=== PATIENT | female | born 1955 | race Caucasian/White ===

== ENCOUNTER 2019-12-31 15:50 | Emergency (ER) | payer BC, SELFPAY ==
--- NOTE | ~2019-12-31 | XR_ITS ---
EXAMINATION: [id number] EXAM DATE: 12/31/2019 16:14 INDICATION: Initial encounter following injury, with pain of the left ribs. TECHNIQUE: Frontal projection of the upper left ribs, frontal projection of the lower left ribs, obli que projection of the left ribs, frontal chest x-ray(s) for interpretation. There is no prior study for comparison. FINDINGS: There are no displaced acute left rib fractures identified. There is no soft tissue abnor mality seen. No confluent consolidation, pneumothorax or pleural effusion suspected. Cardiomediastina l silhouette is normal. IMPRESSION: No displaced left rib fractures. Reviewed, dictated and finalized at location A.
[2019-12-31 16:00] VITALS: BP 122/58; PULSE 78; RESP 16; TEMP 36.6; O2SAT 99
--- NOTE | 2019-12-31 16:36 | ED.GENADULT ---
HPI - General Adult General Chief complaint: Back Pain/Injury Stated complaint: left side injury Time Seen by Provider: 12/31/19 16:25 Source: patient and RN notes reviewed Mode of arrival: ambulatory Limitations: no limitations History of Present Illness HPI narrative: Patient presents today complaining of an injury to her left lateral ribs. Around 10 AM she had a large metal horse feed her fall and hit her on the left side at home. Currently pain free at rest, which increases some with movement and talking. Denies the pain increases when she takes a deep breath. Denies shortness of breath. She has tried no [id number] treatment prior to arrival. 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 EYES: Denies visual changes, redness, or discharge. ENT: Denies rhinorrhea, congestion, sore throat, or otalgia. CARDIOVASCULAR: Denies chest pain, palpitations, or edema. RESPIRATORY: Denies cough or dyspnea. Left rib injury GASTROINTESTINAL: Denies abdominal pain, nausea, vomiting, or diarrhea. GENITOURINARY: Denies dysuria or hematuria. SKIN: Denies rash, itching, or wounds. MUSCULOSKELETAL: Denies back pain, joint pain, or myalgia. NEUROLOGIC: Denies headache, numbness, tingling, or weakness. PSYCH: Denies depression or anxiety. [facility] Past Medical History Medical History (Updated 12/31/19 @ 16:48 by Victorina Worrell, GAME MANAGER, ) Leukopenia Comments At time of signature, I have reviewed and agree with nursing past medical, surgical, social and family history unless otherwise noted. Please see nursing chart for further information. There is no relevant family history pertinent to the presenting complaint Exam Narrative: Exam Narrative: GENERAL: Well-appearing, well-nourished, and in no acute distress. HEAD: Normocephalic, atraumatic. EYES: EOMI. No redness or drainage. Conjunctivae normal. ENT: Mucous membranes pink and moist. NECK: Normal AROM. CHEST: No respiratory distress. Clear to auscultation. Point tenderness to the left lateral ribs. No edema, ecchymosis, erythema, deformity, crepitus, or step-off noted. HEART: Regular rate and rhythm. No murmur appreciated. Normal peripheral pulses. ABDOMEN: Soft, nontender, nondistended, normal active bowel sounds. MUSCULOSKELETAL: No bony tenderness. EXTREMITIES: Normal range of motion. No edema. SKIN: Warm, dry, no rash. Capillary refill normal. Normal skin turgor. NEURO: No focal deficits. Alert and oriented x3. Gait steady. PSYCH: Normal affect. No signs of depression or anxiety. Course Vital Signs Vital signs: Vital Signs Temperature 97.9 F 12/31/19 16:00 Pulse Rate 78 12/31/19 16:00 Respiratory Rate 16 12/31/19 16:00 Blood Pressure 122/58 L 12/31/19 16:00 Pulse Oximetry 99 12/31/19 16:00 Temperature 97.9 F 12/31/19 16:00 Pulse Rate 78 12/31/19 16:00 Respiratory Rate 16 12/31/19 16:00 Blood Pressure 122/58 L 12/31/19 16:00 Pulse Oximetry 99 12/31/19 16:00 Reviewed. Pt has been instructed to follow up with her PCP regarding her elevated blood pressure today. Medical Decision Making Differential Diagnosis Differential Diagnosis: Rib fracture, rib contusion, abrasion Vital Signs Vital Signs: Vital Signs Temperature 97.9 F 12/31/19 16:00 Pulse Rate 78 12/31/19 16:00 Respiratory Rate 16 12/31/19 16:00 Blood Pressure 122/58 L 12/31/19 16:00
== END 2019-12-31 16:40 | disposition home or self-care (01) ==
PROVIDERS: Emergency Provider Nurse Practitioner
DX: S20.212A Contusion of left front wall of thorax, initial encounter (principal); W20.8XXA Other cause of strike by thrown, projected or falling object, initial encounter
CPT/HCPCS: 71101; 99213; G0463

== ENCOUNTER → 2021-02-06 02:35 | Outpatient (CLI) | payer BC, SELFPAY ==
[2021-02-06 16:36] LABS: SARS-CoV-2 RNA PCR Negative
== END ==
PROVIDERS: Visit Provider Internal Medicine Gastroenterology
DX: Z01.812 Encounter for preprocedural laboratory examination (principal); Z20.822 Contact with and (suspected) exposure to COVID-19
CPT/HCPCS: C9803; U0003; U0005

== ENCOUNTER 2021-02-09 00:33 | Day surgery (SDC) | payer BC, SELFPAY ==
[2021-01-28 10:45] VITALS: BMI 22.0
--- NOTE | 2021-02-06 14:29 | P.HP_ITS ---
History of Present Illness History of Present Illness Consent: Risks, benefits, and alternatives have been discussed and questions answered. Patient agrees to proceed with procedure. Chief complaint: hx of colon polyps Narrative: Aixa Bray is a 66 year old female who is here for colon cancer screening. She had a polyp with high-grade dysplasia removed several years ago Review of Systems Review of Systems: All systems reviewed & are unremarkable except as noted in HPI and below PMFSH Past Medical History Medical History (Updated 02/06/21 @ 14:30 by Yanick Hernandez MD) Leukopenia Social History Social History Smoking status: Never smoker Alcohol intake: current Alcohol use details: Yearly x2 Living arrangements: with family Spiritual care concerns: No Meds Home Medications and Allergies Home Medications Medication Instructions Recorded Confirmed Type ascorbic acid (vitamin C) 250 mg PO DAILY 01/28/21 01/28/21 History cholecalciferol (vitamin D3) 25 mcg PO DAILY 01/28/21 01/28/21 History [Vitamin D3] garlic [Garlique] 5 mg PO DAILY 01/28/21 01/28/21 History mv-mn-folic ac-vit K-herb 289 1 tablet PO DAILY 01/28/21 01/28/21 History [Alive Once Daily Women 50 Plus] Allergies Allergy/AdvReac Type Severity Reaction Status Date / Time nickel Allergy Severe RASH Verified 02/09/21 08:08 erythromycin base Allergy Mild HIVES Verified 02/09/21 08:08 midazolam AdvReac Severe NAUSEA Verified 02/09/21 08:08 /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
--- NOTE | 2021-02-09 07:38 | WPDANESEPPF ---
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 SULFITE DERIVATIVES Allergy Mild ITCHY EYES Uncoded 02/09/21 08:08 Home Medications Medication Instructions Recorded Confirmed Type ascorbic acid (vitamin C) 250 mg PO DAILY 01/28/21 01/28/21 History cholecalciferol (vitamin D3) 25 mcg PO DAILY 01/28/21 01/28/21 History [Vitamin D3] garlic [Garlique] 5 mg PO DAILY 01/28/21 01/28/21 History mv-mn-folic ac-vit K-herb 289 1 tablet PO DAILY 01/28/21 01/28/21 History [Alive Once Daily Women 50 Plus] Patient hx anesthesia problems: none Family hx anesthesia problems: none Results Review: All pre-operative results and documents have been reviewed as part of the pre-operative evaluation. [facility] Past Medical History Medical History (Updated 02/06/21 @ 14:30 by Yanick Hernandez MD) Leukopenia Social History Social History Smoking status: Never smoker Alcohol intake: current Alcohol use details: Yearly x2 Living arrangements: with family Spiritual care concerns: No Anes - Eval Final PreProcedure Day of Procedure 02/09/21 07:38 Patient weight: normal Heart: regular rate and rhythm Lungs: clear to auscultation and normal air movement Airway: Mallampati scale class II Neurological: alert and oriented Last oral intake: >/= 8 hours ASA classification: II Emergent: no Anesthetic plan: proceed Anesthesia type and monitoring: general GIVS Results Review: All pre-operative results and documents have been reviewed as part of the pre-operative evaluation. Informed Consent: The patient's anesthetic plan and its attendant risks and benefits were discussed with the patient/family/POA. Questions were solicited and answers provided to the satisfaction of the patient/family/POA.
[2021-02-09 08:08] VITALS: BP 105/71; PULSE 81; RESP 18; TEMP 36.8; O2SAT 100
[2021-02-09] MEDS: LACTATED RINGERS 1,000 ML 150 ML IV CONT (08:19)
[2021-02-09 08:53] VITALS: BP 95/53; PULSE 64; RESP 16; O2SAT 96
[2021-02-09 09:03] VITALS: BP 95/53; PULSE 64; RESP 15; O2SAT 96
[2021-02-09 09:13] VITALS: BP 123/55; PULSE 73; RESP 22; O2SAT 100
== END 2021-02-09 09:25 | disposition home or self-care (01) ==
PROVIDERS: PCP Internal Medicine; Visit Provider Internal Medicine Gastroenterology
PROC: 0DJD8ZZ Inspection of Lower Intestinal Tract, Via Natural or Artificial Opening Endoscopic (ICD-10-PCS; CPT 45378; principal; 2021-02-09 09:00)
DX: Z12.11 Encounter for screening for malignant neoplasm of colon (principal); Z86.010 Personal history of colon polyps
CPT/HCPCS: 45378; C9803; J2704; J7120; U0003; U0005

== ENCOUNTER 2022-12-30 14:26 | Emergency (ER) | payer MEDICARE, OTHER, SELFPAY ==
--- NOTE | ~2022-12-30 | CT_ITS ---
EXAMINATION: CT BRAIN W/O DATE: 12/30/2022 17:37 INDICATION: Head trauma. Evaluate for bleed. TECHNIQUE: Computed tomography (CT) of the head was performed without intravenous contrast. The dose- length product was 832.33 mGy-cm. Automated exposure control and iterative reconstruction technique w ere employed. COMPARISON: No prior studies for comparison. FINDINGS: Normal brain parenchymal volume for age. Normal wheeler-white differentiation. No acute intrac ranial hemorrhage, infarction, mass or mass effect. No ventriculomegaly or midline shift. Midline sagittal images demonstrate a normal corpus callosum, c raniovertebral junction and sella turcica. Basilar cisterns are patent. Paranasal sinuses and mastoids are pneumatized. No depressed skull fractures. IMPRESSION: 1. No acute intracranial abnormality. Reviewed, dictated and finalized at location A.
[2022-12-30 14:50] VITALS: BP 133/76; PULSE 110; RESP 16; TEMP 36.8; O2SAT 99
--- NOTE | 2022-12-30 16:53 | ED.GENADULT ---
HPI - General Adult General Chief complaint: Wound/Laceration Stated complaint: head lac Time Seen by Provider: 12/30/22 16:50 Source: patient Mode of arrival: ambulatory Limitations: no limitations History of Present Illness HPI narrative: This is a 67-year-old female who presents to the ED with chief complaint of head injury that occurred just prior to arrival. Patient states she was pulling something down in her shed and it hit her on the right side of the head. She reports a laceration to the right side of the head with bleeding. Denies any LOC, emesis. She does not take blood thinners. Denies numbness, weakness, speech change or voice change. Denies any problems with ambulation. Related Data Home Medications Medication Instructions Recorded Confirmed ascorbic acid (vitamin C) 500 mg 250 mg PO DAILY 01/28/21 01/28/21 tablet cholecalciferol (vitamin D3) 25 25 mcg PO DAILY 01/28/21 01/28/21 mcg (1,000 unit) tablet (Vitamin D3) garlic 5,000 mcg tablet 5 mg PO DAILY 01/28/21 01/28/21 multivit,mineral-folic acid 800 1 tablet PO DAILY 01/28/21 01/28/21 mcg-vit K 100 mcg-herbal no.289 tablet (Alive Once Daily Women 50 Plus) Allergies Allergy/AdvReac Type Severity Reaction Status Date / Time nickel Allergy Severe RASH Verified 12/30/22 17:20 erythromycin base Allergy Mild HIVES Verified 12/30/22 17:20 midazolam AdvReac Severe NAUSEA Verified 12/30/22 17:20 /VOMITING CUSTODIAL MEMORY PROBLEMS SULFITE DERIVATIVES Allergy Mild ITCHY EYES Uncoded 12/30/22 17:20 Review of Systems Review of Systems: All systems as dictated in [facility] Past Medical History Medical History (Updated 12/30/22 @ 18:20 by Ghassan Subramanian PA-C) Leukopenia Social History Social History Smoking status: Never smoker Alcohol intake: current Alcohol use details: Yearly x2 Living arrangements: with family Spiritual care concerns: No Exam Narrative: GENERAL: Well-appearing, well-nourished, and in no acute distress. HEAD: Normocephalic, atraumatic. EYES: PERRLA and EOMI. ENT: Nares clear, no rhinorrhea or epistaxis. Mucous membranes moist. Oropharynx without tonsillar hypertrophy exudate or other lesions. NECK: Supple. No adenopathy or masses. CHEST: No respiratory distress. Clear to auscultation. No wheezes rales or rhonchi HEART: Regular rate and rhythm. No murmur heard. Normal peripheral pulses. ABDOMEN: Soft, nontender, nondistended, normal active bowel sounds. MSK: Normal range of motion. No edema. SKIN: There is a 1 cm angled V-shaped laceration to the right parietal scalp. Bleeding is controlled. NEURO: Alert and oriented x4. No focal deficits. Ambulatory without difficulty. PSYCH: Normal mood and affect. Course Vital Signs Vital signs: Vital Signs Temperature 98.3 F 12/30/22 14:50 Pulse Rate 110 H 12/30/22 14:50 Respiratory Rate 16 12/30/22 14:50 Blood Pressure 133/76 12/30/22 14:50 Pulse Oximetry 99 12/30/22 14:50 Oxygen Delivery Room Air 12/30/22 14:50 Temperature 98.3 F 12/30/22 14:50 Pulse Rate 110 H 12/30/22 14:50 Respiratory Rate 16 12/30/22 14:50 Blood Pressure 133/76 12/30/22 14:50 Pulse Oximetry 99 12/30/22 14:50 Oxygen Delivery Room Air 12/30/22 14:50 Procedures Laceration Laceration 1: Date: 12/30/22 Time: 18:21 Site: scalp Side (If applicable): right Size (cm): 1 Description: other (Angled) Depth: simple, single layer Local Anesthetic: none Pre-repair: wound explored and irrigated extensively ====== Skin Level ====== Skin layer closed with: sandra Number of sutures: 1 ====== Subcutaneous Layer ====== ====== Muscle Layer ====== ====== Tendon Layer ====== Medical Decision Making MDM Narrative Medical decision making narrative: This is a 67-ye
[2022-12-30 18:19] VITALS: BP 132/69; PULSE 98; RESP 16; TEMP 37; O2SAT 98
== END 2022-12-30 18:39 | disposition home or self-care (01) ==
PROVIDERS: Emergency Provider Physician Assistant; PCP Family Medicine
DX: S01.01XA Laceration without foreign body of scalp, initial encounter (principal); W20.8XXA Other cause of strike by thrown, projected or falling object, initial encounter
CPT/HCPCS: 12001; 70450; 99284

== ENCOUNTER 2024-02-28 01:08 | Day surgery (SDC) | payer MEDICARE, OTHER, SELFPAY ==
[2024-02-21 15:57] VITALS: BMI 23.3
[2024-02-28 08:04] VITALS: BP 118/74; PULSE 94; RESP 16; TEMP 36.4; O2SAT 97; BMI 23.1
[2024-02-28] MEDS: LACTATED RINGERS 1,000 ML 150 ML IV CONT (08:19)
--- NOTE | 2024-02-28 08:25 | WPDANESEPPF ---
Anes - Initial Pre Proc Eval Procedure: Operation Date: 02/28/24 09:00 Proposed Procedures p Screening Colonoscopy - Nikita Yun MD Date/Time: 02/28/24 08:25 Surgeon: Nikita Yun MD Pre Op Diagnosis: screening neoplasm of colon Patient Data Age: 69 Gender: F Height: 1.63 m Weight: 61.3 kg Last Vital Signs Temp 36.4 C L 02/28/24 08:04 Pulse 94 02/28/24 08:04 Resp 16 02/28/24 08:04 BP 118/74 02/28/24 08:04 Pulse Ox 97 02/28/24 08:04 O2 Del Method Room Air 02/28/24 08:04 Allergies Allergy/AdvReac Type Severity Reaction Status Date / Time nickel Allergy Severe RASH Verified 02/28/24 08:02 erythromycin base Allergy Mild HIVES Verified 02/28/24 08:02 midazolam AdvReac Severe NAUSEA Verified 02/28/24 08:02 /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 SULFITE DERIVATIVES Allergy Mild ITCHY EYES Uncoded 02/28/24 08:02 Home Medications ?Medication ?Instructions ?Recorded ?Confirmed ?Type ascorbic acid (vitamin C) 500 mg 250 mg PO DAILY 01/28/21 02/28/24 History tablet cholecalciferol (vitamin D3) 25 25 mcg PO DAILY 01/28/21 02/28/24 History mcg (1,000 unit) tablet (Vitamin D3) garlic 5,000 mcg tablet 5 mg PO DAILY 01/28/21 02/28/24 History multivit,mineral-folic acid 800 1 tablet PO DAILY 01/28/21 02/28/24 History mcg-vit K 100 mcg-herbal no.289 tablet (Alive Once Daily Women 50 Plus) Patient hx anesthesia problems: none Family hx anesthesia problems: none Results Review: All pre-operative results and documents have been reviewed as part of the pre-operative evaluation. PMFSH Past Medical History Medical History Leukopenia Social History Social History Smoking status: Never smoker Alcohol intake: current Alcohol use details: Yearly x2 Substance use type: does not use Living arrangements: with family Spiritual care concerns: No Anes - Eval Final PreProcedure Day of Procedure 02/28/24 08:25 Patient weight: normal Heart: regular rate and rhythm Lungs: clear to auscultation Airway: Mallampati scale class II Neurological: alert and oriented Last oral intake: >/= 8 hours ASA classification: II Emergent: no Anesthetic plan: proceed Anesthesia type and monitoring: general and standard monitoring Results Review: All pre-operative results and documents have been reviewed as part of the pre-operative evaluation. Informed Consent: The patient's anesthetic plan and its attendant risks and benefits were discussed with the patient/family/POA. Questions were solicited and answers provided to the satisfaction of the patient/family/POA.
--- NOTE | 2024-02-28 08:27 | P.HP_ITS ---
History of Present Illness History of Present Illness Consent: Risks, benefits, and alternatives have been discussed and questions answered. Patient agrees to proceed with procedure. Chief complaint: screening neoplasm of colon Narrative: Aixa Bray is a 69 year old female here for colonoscopy, last one 2020. She had a polyp with high-grade dysplasia removed several years ago with left hemicolectomy and has been getting her colonoscopies every 3 years Review of Systems Review of Systems: All systems reviewed & are unremarkable except as noted in HPI and below PMFSH Past Medical History Medical History (Updated 02/28/24 @ 08:28 by Nikita Yun MD) Adenomatous colon polyp Leukopenia Social History Social History Smoking status: Never smoker Alcohol intake: current Alcohol use details: Yearly x2 Substance use type: does not use Living arrangements: with family Spiritual care concerns: No Meds Home Medications and Allergies Home Medications ?Medication ?Instructions ?Recorded ?Confirmed ?Type ascorbic acid (vitamin C) 500 mg 250 mg PO DAILY 01/28/21 02/28/24 History tablet cholecalciferol (vitamin D3) 25 25 mcg PO DAILY 01/28/21 02/28/24 History mcg (1,000 unit) tablet (Vitamin D3) garlic 5,000 mcg tablet 5 mg PO DAILY 01/28/21 02/28/24 History multivit,mineral-folic acid 800 1 tablet PO DAILY 01/28/21 02/28/24 History mcg-vit K 100 mcg-herbal no.289 tablet (Alive Once Daily Women 50 Plus) Allergies Allergy/AdvReac Type Severity Reaction Status Date / Time nickel Allergy Severe RASH Verified 02/28/24 08:02 erythromycin base Allergy Mild HIVES Verified 02/28/24 08:02 midazolam AdvReac Severe NAUSEA Verified 02/28/24 08:02 /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 SULFITE DERIVATIVES Allergy Mild ITCHY EYES Uncoded 02/28/24 08:02 Vital Signs Vital Signs - 24 hr 02/28/24 08:04 Temperature 97.5 F L Pulse Rate 94 Respiratory Rate 16 Blood Pressure 118/74 Pulse Oximetry 97 Oxygen Delivery Room Air Exam Const: General: comfortable and no acute distress HENMT: Face/Nose/Sinus: Normal nares present Eyes: General: appearance normal, both eyes and all related structures Neck: Neck: no JVD Resp: Auscultation: clear to auscultation bilaterally Cardio: Rate: regular rate Rhythm: regular rhythm GI: Inspection: non-distended GI Palp: Yes Soft to palpation Skin: General skin exam: normal color Neuro: General: gait normal Speech: normal speech Extrem: General: normal to inspection Psych: Mental Status: mental status grossly normal Assessment and Plan Assessment and plan (1) Adenomatous colon polyp: Code(s): D12.6 - Benign neoplasm of colon, unspecified Status: Acute Assessment and Plan: colonoscopy
[2024-02-28 08:41] VITALS: BP 82/48; PULSE 83; RESP 16; O2SAT 98
[2024-02-28 08:51] VITALS: BP 91/53; PULSE 80; RESP 16; O2SAT 99
[2024-02-28 09:01] VITALS: BP 98/58; PULSE 80; RESP 16; O2SAT 99
== END 2024-02-28 09:16 | disposition home or self-care (01) ==
PROVIDERS: PCP Family Medicine; Visit Provider Internal Medicine Gastroenterology
PROC: 0DJD8ZZ Inspection of Lower Intestinal Tract, Via Natural or Artificial Opening Endoscopic (ICD-10-PCS; CPT 45378; principal; 2024-02-28 09:00)
DX: Z12.11 Encounter for screening for malignant neoplasm of colon (principal); K64.8 Other hemorrhoids; D72.819 Decreased white blood cell count, unspecified; Z98.890 Other specified postprocedural states; Z90.49 Acquired absence of other specified parts of digestive tract; Z86.0100 Personal history of colon polyps, unspecified
CPT/HCPCS: G0105; J2704; J7120

== ENCOUNTER 2024-05-13 22:06 | Emergency (ER) | payer MEDICARE, OTHER, SELFPAY ==
--- OUTSIDE RECORDS SUMMARY | 2024-05-13 22:09 | XMS_ITS | Referral Summary ---
Author Organization [facility] Address [address] [place] [address] Care Team Providers Care Property Consultant Name Role Phone Antoine Estevez MD Unavailable [phone] Source Comments [facility],non-owned Affiliates and Associated Physician Practices is amultiple site organization consisting of ambulatory clinics and hospital sitesin [place], [place], [place] and [place]. This disclosure is being madepursuant to the Care Everywhere program and may not contain all information available regarding this patient. 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 Office Visit [facility] - SAMPLE SHOE INSPECTOR AND REWORKER [address] [place] [address], [address] [phone] Zachery Munoz MD Vaginal discomfort (Primary Dx); Rectocele 05/09/2024 Telephone [facility] - SAMPLE SHOE INSPECTOR AND REWORKER [address] [place] [address], [address] [place] [phone] Zachery Munoz MD Vulva Problem from Last 3 Months Allergies Active Allergy Reactions Criticality Noted Date Comments Cephalexin Urticaria,Nausea and/or Vomiting Medium 02/2011 Erythrocin 06/20/2008 Erythromycin Urticaria,Nausea and/or Vomiting Medium 0 11/11/2015 Midazolam Nausea and/or Vomiting High 01/17/2019 Medications * Be aware that medications may not be up to date on this document. Alwaysverify current medications with the patient. Medication Sig Dispensed Refills Start Date End Date Status Multiple Vitamin (MULTI VITAMIN) TABS Take 1 tablet by mouth once daily Active ascorbic acid (VITAMIN C) 500 MG tablet Take 1 (one) tablet by mouth once daily Active desloratadine (CLARINEX) 5 MG tablet Take 1 (one) tablet by mouth once daily 11/04/2020 Active Cholecalciferol 25 MCG (1000 UT) Take 1 (one) tablet by mouth once daily Active Active Problems Problem Noted Date Diagnosed Date Noninfective gastroenteritis and colitis 016 Fibrosclerosis of breast 08/23/2014 Other abnormal and inconclus sandra findings on diagnostic imaging of breast 08/07/2014 Acquired absence of other sp ecified parts of digestive tract 12/16/2010 Overview (11/11/2015): Overview: Polyp with in situ CA Post-menopausal bleeding Social History Tobacco Use Types Packs/Day Years Used Date Smoking Tobacco: Never Smokeless Tobacco: Never Tobacco Cessation:Counseling Given: Not Answered Alcohol Use Standard Drinks/Week Comments No 0 (1 standard drink = 0.6 oz pur e alcohol) PHQ-2 Answer Date Recorded PHQ2 TOTAL SCORE 0 07/07/2022 Sex and Gender Information Value Date Recorded Sex Assigned at Not on file Gender Identity Not on file Sexual Orientation Not on file Last Filed Vital Signs Vital Sign Reading Time Taken Comments Blood Pressure 118/80 05/11/2024 1:34 PM REAL ESTATE APPRAISER SUPERVISOR Pulse 72 01/17/2019 1:35 PM CDT Temperature 36.6 C (97.8 F) 01/17/2019 1:35 PM CDT Respiratory Rate 16 01/17/2019 1:35 PM CDT Oxygen Saturation 99% 01/17/2019 1:55 PM CDT Inhaled Oxygen Concentration - - Weight 63.8 kg (140 lb 11.2 oz) 05/11/2024 1:34 PM REAL ESTATE APPRAISER SUPERVISOR Height 165.1 cm (5' 5 ) 05/11/2024 1:34 PM REAL ESTATE APPRAISER SUPERVISOR Body Mass Index 23.41 05/11/2024 1:34 PM REAL ESTATE APPRAISER SUPERVISOR Functional Status Functional Status Response Date of Assess ment Is person deaf or have serious hearing difficult y? No 01/17/2019 Is person blind or have serious difficulty seein g? No 01/17/2019 Does person have serious dif ficulty walking/climbing stairs? No 01/17/2019 Does person have difficulty dressing/bathing? No 01/17/2019 Does person have difficulty doing errands alone? No 01/17/2019 Cognitive Status Response Date of Assessm ent Does person have difficulty concentrating/remembering/making decisions? No 01/17/2019 Plan of Treatment Not on file Procedures Procedure Name Priority Date/Time Associated Diagnosis Comments LIPID PROFILE W LDL/HDL RATIO Routine 07/07/2022 1:39 PM CDT Screening due COLONOSCOPY 02/09/2021 MAMMO BILAT SCREENING Routine 06/19/2020 2:49 PM CDT Visit for screening mammogram from Last 3 Months or Most Recently Relevant to Health Maintenance Results * (ABNORMAL) LIPID PROFILE W LDL/HDL RATIO (07/07/2022 1:39 PM CDT) Cholesterol 257(H) 100 - 199 mg/dL [facility] INSURANCE BILL Triglycerides 135 0 - 149 mg/dL [facility] INSURANCE BILL HDL Cholesterol 61 >39 mg/dL [facility] INSURANCE BILL VLDL Calculated 24 5 - 40 mg/dL [facility] INSURANCE BILL LDL Calculated 172(H) 0 - 99 mg/dL [facility] INSURANCE BILL Comment NOT AVAILABLE [facility] INSURANCE BILL Comment:Result cannot be obt ained for this observation. LDL/HDL Ratio 2.8 0.0 - 3.2 ratio [facility] INSURANCE BILL Comment: LDL/HDL Ratio Men Women 1/2 Avg.Risk 1.0 1.5 Avg.Risk 3.6 3.2 2X Avg.Risk 6.2 5.0 3X Avg.Risk 8.0 6.1 Blood BLOOD SPECIMEN / Unknown 07/07/2022 1:39 PM CDT 07/07/2022 Narrative Resulting Agency Comment Lab Testing performed at: [facility] [address] [id number] Zachery Munoz MD LAB - CHEMISTRY URMILA BARR [facility] INSURANCE BILL [address] [place] [address] * COLONOSCOPY (02/09/2021) 02/09/2021 Narrative 02/09/2021 Ordered by an unspecified provider. Scanned Document SCANNING ONLY * MAMMO BILAT SCREENING (06/19/2020 2:49 PM CDT) Anatomical Region Laterality Modality Breast Bilateral Mammography 06/19/2020 5:05 PM CDT Impressions 06/19/2020 5:07 PM CDT Annual screening mammography is recommended. OVERALL FINAL ASSESSMENT: BI-RADS Category 1: Negative. *Reading Radiologist: Lucy Couch on 06/19/2020 at 5:07 PM Narrative 06/19/2020 5:07 PM CDT EXAMINATION: BILATERAL DIGITAL SCREENING MAMMOGRAM AND BILATERAL BREAST TOMOSYNTHESIS HISTORY: Screening. COMPARISON: Serial examinations dating back to 11/11/2015 TECHNIQUE: BILATERAL digital breast tomosynthesis (DBT) and synthetic 2D digital mammogram images were obtained (bilateral craniocaudal and mediolateral oblique projections) including computer aided detection (CAD.) BREAST PARENCHYMAL COMPOSITION: The breasts are heterogenously dense, which may obscure small masses. MAMMOGRAM FINDINGS: There is no suspicious finding in either breast. Antoine Estevez MD MAMMO ORDERABLES from Last 3 Months or Most Recently Relevant to Health Maintenance Care Teams Property Consultant Relationship Specialty Start Date End Date Antoine Estevez MD [address] [place] [address] PCP - OBGYN Obstetrics and Gynecology 10/06/12
--- OUTSIDE RECORDS SUMMARY | 2024-05-13 22:09 | XMS_ITS | Clinical Summary ---
Author Organization [facility] Address [address] [place] [address] Phone Care Team Providers Care Copy Chaser Name Role Phone Lois Vallejo MD Primary Care Provider [phone] Allergies Active Allergy Reactions Criticality Noted Date Comments Cephalexin Nausea and Vomiting Low 12/30/2010 Erythromycin Nausea and Vomiting Low 08/07/2014 Medications mometasone (NASONEX) 50 mcg/actuation Jackson, Non-Aerosol Administer 2 Sprays in each nostril daily. Active oxyCODONE-aceta minophen (PERCOCET) 5-325 mg tablet Take 1 Tab by mouth every 4 hours as needed for Pain, Moderate. Max Daily Amount: 6 Tabs 30 Tab 0 5 Active Active Problems Patient Care Coordination No te Formatting of this note migh t be different from the original. Primary Care: Lois Vallejo MD Referring Provider: Antoine Estevez MD [facility] [address] [place] [address] Other: Problem Noted Date Diagnosed Date Fibrosis, breast 08/23/2014 Abnormal mammogram, unspecified 08/07/2014 History of colon resection 12/16/2010 Overview (12/16/2010): Polyp with in situ CA Colitis Family History Medical History Relation Name Comments Heart Disease Father heart attack Cancer Mother adenocarcinoma, primary unknown. 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 Gender Identity Not on file Sexual Orientation Not on file Occupation Industry Job Start Date Job End Date Not on file Not on file Not on file Not on file Last Filed Vital Signs Vital Sign Reading Time Taken Comments Blood Pressure 118/59 08/15/2014 11:50 AM CDT Pulse 84 08/15/2014 7:46 AM CDT Temperature 36.7 C (98 F) 08/15/2014 11:10 AM CDT Respiratory Rate 14 08/15/2014 11:50 AM CDT Oxygen Saturation 98% 08/15/2014 11:50 AM CDT Inhaled Oxygen Concentration - - Weight 62.6 kg (138 lb) 08/15/2014 7:46 AM CDT Height 163.8 cm (5' 4.5 ) 08/15/2014 7:46 AM CDT Body Mass Index 23.32 08/15/2014 7:46 AM CDT Plan of Treatment Health Maintenance Due Date Last Done Comments DTAP/TDAP/TD VACCINES (1 - Tdap) 01/26/1976 FIT-DNA Q 3 years 2002 FIT/FOBT Q 1 year 2002 Flex Sig/CT Colonography Q 5 years 2002 PNEUMOCOCCAL VACCINE 65+ YEA RS (1 of 1 - PCV) 2007 ZOSTER VACCINE (1 of 2) 2007 BREAST CANCER SCREENING 08/16/2015 08/16/19 15, 07/26/2014, 07/18/2014, Additional history exists COLORECTAL SCREENING 12/16/2020 12/16/2010, 12/17/19 11 Colorectal Cancer Screening 12/16/2020 OSTEOPOROSIS SCREENING 2022 INFLUENZA VACCINE (#1) 2023 RSV VACCINE (60+ or ) (1 - 1-dose 75+ series) 01/26/2032 Procedures Procedure Name Priority Date/Time Associated Diagnosis Comments MAMMO DIAGNOSTIC UNI RIGHT W OR WO CAD Routine 08/15/2014 9:26 AM CDT Abnormal mammogram, unspecified from Last 3 Months or Most Recently Relevant to Health Maintenance Results * MAMMO DIGITAL DIAG UNI RIGHT (08/15/2014 9:26 AM CDT) Anatomical Region Laterality Modality Breast Right Mammography 08/15/2014 9:25 AM CDT Impressions 08/16/2014 1:37 PM CDT IMPRESSION: Technically successful ultrasound guided needle localization. Dictated from Stuart CorleyConcow Narrative 08/16/2014 1:37 PM CDT RIGHT BREAST NEEDLE LOCALIZATION UTILIZING ULTRASOUND GUIDANCE, UNILATERAL RIGHT FULL-FIELD DIGITAL DIAGNOSTIC MAMMOGRAM, SPECIMEN RADIOGRAPH Date: 08/15/14 History: Patient has a retroareolar right breast mass. Procedure and findings: The procedure was discussed with the patient. Written informed consent was obtained. After sterile preparation of the skin, 1% lidocaine was utilized for local anesthesia. The hookwire system was inserted into the area of interest from a medial approach using sonographic guidance. 0.2 cc of methylene blue dye was injected through the hub of the needle prior to insertion of the wire. The patient tolerated the procedure well and there was no evidence of immediate complication. A two view full field digital diagnostic mammogram was performed and reveals the wire to be in adequate position. The surgical specimen was subsequently received from the operating room and was imaged. The specimen radiograph demonstrates what I believe is the mass. Findings were communicated to the surgeon. Procedure Note Radha Ribeiro MD - 08/16/2014 RIGHT BREAST NEEDLE LOCALIZATION UTILIZING ULTRASOUND GUIDANCE, UNILATERAL RIGHT FULL-FIELD DIGITAL DIAGNOSTIC MAMMOGRAM, SPECIMEN RADIOGRAPH Date: 08/15/14 History: Patient has a retroareolar right breast mass. Procedure and findings: The procedure was discussed with the patient. Written informed consent was obtained. After sterile preparation of the skin, 1% lidocaine was utilized for local anesthesia. The hookwire system was inserted into the area of interest from a medial approach using sonographic guidance. 0.2 cc of methylene blue dye was injected through the hub of the needle prior to insertion of the wire. The patient tolerated the procedure well and there was no evidence of immediate complication. A two view full field digital diagnostic mammogram was performed and reveals the wire to be in adequate position. The surgical specimen was subsequently received from the operating room and was imaged. The specimen radiograph demonstrates what I believe is the mass. Findings were communicated to the surgeon. IMPRESSION IMPRESSION: Technically successful ultrasound guided needle localization. Dictated from Concepcion Corley us Maria Elena Kaye MD MAMMO ORDERABLES Final Result from Last 3 Months or Most Recently Relevant to Health Maintenance Insurance [employer] [facility] OPEN ACCESS Advance Directives For more information, please contact: [phone] * Full Code (Latest Code Status on File) Date Activated Date Inactivated Comments 08/15/2014 8:36 AM 08/15/2014 2:04 PM * Full Code Date Activated Date Inactivated Comments 08/15/2014 7:29 AM 08/15/2014 8:36 AM Care Teams Copy Chaser Relationship Specialty Start Date End Date Lois Vallejo MD PCP - General Allergy & Immunology 12/16/10
--- OUTSIDE RECORDS SUMMARY | 2024-05-13 22:09 | XMS_ITS | Clinical Summary ---
Author Organization [facility] Address [address] [place] [address] Care Team Providers Care Art Teacher Name Role Phone Antoine Estevez MD Unavailable [phone] Source Comments [facility],non-owned Affiliates and Associated Physician Practices is amultiple site organization consisting of ambulatory clinics and hospital sitesin [place], [place], [place] and [place]. This disclosure is being madepursuant to the Care Everywhere program and may not contain all information available regarding this patient. Last updated 17.[facility] Allergies Active Allergy Reactions Criticality Noted Date [...] Polyp with in situ CA Post-menopausal bleeding Encounters Date Type Department Care Team Description 05/11/2024 1:30 PM PROMOTION SPECIALIST Office Visit [facility] - OPERATOR TECHNICIAN [address] [place] [address], [address] [place] [phone] Zachery Munoz MD Vaginal discomfort (Primary Dx); Rectocele 05/11/2024 Travel 05/09/2024 Telephone [facility] OPERATOR TECHNICIAN [address] [place] [address], [address] [place] [phone] Zachery Munoz MD Vulva Problem from Last 3 Months Family History Medical History Relation Name Comments Cancer Mother colon Relation Name Status Comments Mother Social History Tobacco Use Types Packs/Day [...] Comments Blood Pressure 118/80 05/11/2024 1:34 PM PROMOTION SPECIALIST Pulse 72 01/17/2019 1:35 PM CDT Temperature 36.6 C (97.8 F) 01/17/2019 1:35 PM CDT Respiratory Rate 16 01/17/2019 1:35 PM CDT Oxygen Saturation 99% 01/17/2019 1:55 PM CDT Inhaled Oxygen Concentration - - Weight 63.8 kg (140 lb 11.2 oz) 05/11/2024 1:34 PM PROMOTION SPECIALIST Height 165.1 cm (5' 5 ) 05/11/2024 1:34 PM PROMOTION SPECIALIST Body Mass Index 23.41 05/11/2024 1:34 PM PROMOTION SPECIALIST Plan of Treatment Health Maintenance Due Date Last Done Comments BONE DENSITY TESTING 1957 COLOGUARD (AGES 45-75) - COLON CA SCREENING 1957 CT COLONOGRAPHY - COLON CA SCREENING 1957 FIT - COLON CA SCREENING 1957 FLEX SIG - COLON CA SCREENING 1957 MEDICARE AWV 12 MONTHS 1957 HEPATITIS C SCREENING 01/21/1975 DTAP/TDAP/TD VACCINES (1 - Tdap) 01/26/1976 PNEUMOCOCCAL VACCINE 50+ (1 of 1 - PCV) 2007 ZOSTER VACCINE (1 of 2) 2007 MAMMOGRAM 06/19/2022 06/19/2020, 1011/2016, 11/11/2015, Additional history exists COVID-19 VACCINE (1 - season) 2023 INFLUENZA VACCINE (#1) 2023 DEPRESSION SCREENING 03/21/2024 07/07/2022 LIPID TESTING 07/08/2027 07/07/2022 COLON MONITORING 02/09/2031 02/09/2021, , 03/27/2012, Additional history exists COLONOSCOPY - COLON CA SCREENING 02/09/2031 02/09/2021, 01/17/2015, 03/27/2012, Additional history exists Colorectal Cancer Screening 02/09/2031 Respiratory Syncytial Virus (RSV) Vaccine Pt: or over 60 yrs (1 - 1-dose 75+ series) 01/26/2032 HEPATITIS B VACCINE Aged Out No longe r eligible based on patient's age to complete this topic HIB VACCINE Aged Out No longer eligi ble based on patient's age to complete this topic HPV VACCINE Aged Out No longer eligi ble based on patient's age to complete this topic MENINGOCOCCAL (Group B) VACCINE Aged Out No longer eligible based on patient's age to complete this topic MENINGOCOCCAL VACCINE Aged Out No senthil radha eligible based on patient's age to complete this topic Procedures Procedure Name Priority Date/Time Associated Diagnosis [...] Resulting Agency Comment Lab Testing performed at: [facility] [place] [address] [id number] Zachery Munoz MD LAB - CHEMISTRY URMILA [facility] Organization Address City/State/ZIP Co de Phone Number [facility] INSURANCE BILL [address] [place] [address] * COLONOSCOPY (02/09/2021) 02/09/2021 Narrative 02/09/2021 Ordered [...] Recently Relevant to Health Maintenance Care Teams Art Teacher Relationship Specialty Start Date End Date Antoine Estevez MD [address] [place] [address] PCP - OBGYN Obstetrics and Gynecology 10/06/12
--- OUTSIDE RECORDS SUMMARY | 2024-05-13 22:09 | XMS_ITS | Patient Health Summary ---
Author Organization [facility] Address [address] [place] [address] Care Team Providers Care Surgeon/President Name Role Phone Antoine Estevez MD Unavailable [phone] [facility],non-owned Affiliates and Associated Physician Practices is amultiple site organization consisting of ambulatory clinics and hospital sitesin [place], [place], [place] and [place]. This disclosure is being madepursuant to the Care Everywhere program and may not contain all information available regarding this patient. Last updated 17.[facility] Allergies * Cephalexin(Urticaria,Nausea and/or Vomiting) -Medium Criticality * Erythrocin * Erythromycin(Urticaria,Nausea and/or Vomiting) -Medium Criticality * Midazolam(Nausea and/or Vomiting) -High Criticality Medications * Be aware that medications may not be up to date on this document. Alwaysverify current medications with the patient. * Multiple Vitamin (MULTI VITAMIN) TABS Take 1 tablet by mouth once daily * ascorbic acid (VITAMIN C) 500 MG tablet Take 1 (one) tablet by mouth once daily * desloratadine (CLARINEX) 5 MG tablet(Started 11/04/2020) Take 1 (one) tablet by mouth once daily * Cholecalciferol 25 MCG (1000 UT) Take 1 (one) tablet by mouth once daily Active Problems Problem Noted Date Diagnosed Date Noninfective gastroenteritis and colitis 016 Fibrosclerosis of breast 08/23/2014 Other abnormal and inconclus sandra findings on diagnostic imaging of breast 08/07/2014 Acquired absence of other sp ecified parts of digestive tract 12/16/2010 Post-menopausal bleeding Social History Tobacco Use Types [...] Comments Blood Pressure 118/80 05/11/2024 1:34 PM COPY LATHE OPERATOR Pulse 72 01/17/2019 1:35 PM CDT Temperature 36.6 C (97.8 F) 01/17/2019 1:35 PM CDT Respiratory Rate 16 01/17/2019 1:35 PM CDT Oxygen Saturation 99% 01/17/2019 1:55 PM CDT Inhaled Oxygen Concentration - - Weight 63.8 kg (140 lb 11.2 oz) 05/11/2024 1:34 PM COPY LATHE OPERATOR Height 165.1 cm (5' 5 ) 05/11/2024 1:34 PM COPY LATHE OPERATOR Body Mass Index 23.41 05/11/2024 1:34 PM COPY LATHE OPERATOR Procedures * URINALYSIS REFLEX TO MICROSCOPIC NO CULTURE(Performed 08/03/2022) Performed for Dysuria * CULTURE URINE(Performed 08/03/2022) Performed for Dysuria * LIPID PROFILE W LDL/HDL RATIO(Performed 07/07/2022) Performed for Screening due * CBC W AUTO DIFFERENTIAL(Performed 07/07/2022) Performed for Screening due * CULTURE URINE COMPREHENSIVE(Performed 07/07/2022) Performed for Hematuria, unspecified type * PAP IG LB(Performed 07/07/2022) Performed for Pap smear, as part of routine gynecological examination * COLONOSCOPY(Performed 02/09/2021) * URINALYSIS REFLEX TO MICROSCOPIC NO CULTURE(Performed 02/07/2021) Performed for Asymptomatic microscopic hematuria * PAP IG LB RFLX HPV APTIMA ASCU(Performed 02/03/2021) Performed for Well woman exam with routine gynecological exam * MAMMO BILAT SCREENING(Performed 06/19/2020) Performed for Visit for screening mammogram * PAP IG LB RFLX HPV APTIMA ASCU(Performed 10/05/2019) Performed for Well woman exam with routine gynecological exam * CARDIAC RHYTHM STRIP ORDER(Performed 01/18/2019) * PATHOLOGY TISSUE EXAM (STL)(Performed 01/17/2019) Performed for Diagnosis unknown * GA HYSTEROSCOPY,ENDOMET ABLATION(Performed 01/17/2019) Performed for N95.0, PMB * CBC W AUTO DIFFERENTIAL(Performed 01/17/2019) Performed for Post-menopausal bleeding * US TRANSVAGINAL NON OB(Performed 11/23/2018) Performed for Postmenopausal bleeding * US TRANSVAGINAL NON OB(Performed 10/30/2018) Performed for PMB (postmenopausal bleeding) * PATHOLOGY TISSUE EXAM (STL)(Performed 10/30/2018) Performed for Postmenopausal bleeding * PAP IG RFLX HPV ASCU(Performed 08/04/2018) Performed for Well woman exam with routine gynecological exam * MAMMO BILAT SCREENING(Performed 12/27/2016) Performed for Visit for screening mammogram * PAP IG RFLX HPV ASCU(Performed 11/11/2016) Performed for Well woman exam with routine gynecological exam * MAMMO BILAT SCREENING(Performed 11/11/2015) Performed for Visit for screening mammogram * PAP IG RFLX HPV ASCU(Performed 11/11/2015) Performed for Well woman exam with routine gynecological exam * ENDOSCOPY, COLON, SCREENING(Performed 01/17/2015) * PATHOLOGY/CYTOLOGY REPORT ORDER(Performed 08/15/2014) * US BREAST BILATERAL COMPLETE(Performed 07/26/2014) Performed for Abnormal mammogram, unspecified * MAMMO LEFT DIAGNOSTIC(Performed 07/26/2014) Performed for Abnormal mammogram, unspecified * MAMMO BILAT SCREENING(Performed 07/18/2014) Performed for Other screening mammogram * FSH(Performed 07/18/2014) Performed for Amenorrhea * TSH(Performed 07/18/2014) Performed for Amenorrhea * PAP IG RFLX HPV ASCU(Performed 07/18/2014) Performed for Routine gynecological examination * MAMMO BILAT SCREENING(Performed 10/06/2012) Performed for Other Screening Mammogram * CBC W AUTO DIFFERENTIAL(Performed 10/06/2012) Performed for Fatigue * CHOLESTEROL BLOOD(Performed 10/06/2012) Performed for Fatigue * T4 FREE(Performed 10/06/2012) Performed for Fatigue * TSH(Performed 10/06/2012) Performed for Fatigue * PAP IG RFLX HPV ASCU(Performed 10/06/2012) Performed for Routine Gynecological Examination * COLONOSCOPY WITH REMOVAL TUMOR, POLYP BY HOT FORCEPS OR CAUTERY(Performed 03/27/2012) Performed for History of colon polyps * COLONOSCOPY BIOPSY (ANY METHOD)(Performed 03/27/2012) Performed for History of colon polyps * COLONOSCOPY SCREEN(Performed 03/27/2012) Performed for History of colon polyps * ENDOSCOPY, COLON, SCREENING(Performed 03/27/2012) * PATHOLOGY TISSUE EXAM (STL)(Performed 03/27/2012) Performed for Hx of colonic polyps * HCG URINE QUALITATIVE - POINT OF CARE(Performed 03/27/2012) * IMAGING/RADIOLOGY/XRAY RESULTS ORDER(Performed 07/06/2011) * MAMMO BILAT SCREENING(Performed 06/11/2011) Performed for Screening mammogram * PAP IG RFLX HPV ASCU(Performed 06/11/2011) Performed for Routine gynecological examination * PAP IG RFLX HPV ASCU(Performed 08/05/2010) Performed for Routine gynecological examination * PAP IG RFLX HPV ASCU(Performed 06/20/2009) Performed for Routine Gynecological Examination * CARDIAC RHYTHM STRIP ORDER(Performed 02/12/2009) * ENDOSCOPY ORDER(Performed 02/05/2009) * PAP IG RFLX HPV ASCU(Performed 06/20/2008) Performed for Routine Gynecological Examination * MAMMO BILAT SCREENING(Performed 06/20/2008) * GROSS + MICRO EXAM(Performed 08/10/2006) Results * URINALYSIS REFLEX TO MICROSCOPIC NO CULTURE (08/03/2022 3:11 PM CDT) Only the most recent of2 resultswithin the time period is included. Specific Anita UA 1.006 1.005 - 1.030 [facility] INSURANCE BILL pH UA 6.5 5.0 - 7.5 [facility] INSURANCE BILL Color UA Yellow Yellow [facility] INSURANCE BILL Appearance Clear Clear [facility] INSURANCE BILL Leukocyte UA Negative Negative [facility] INSURANCE BILL Protein UA Negative Negative/Tra ce [facility] INSURANCE BILL Glucose UA Negative Negative [facility] INSURANCE BILL Ketone UA Negative Negative [facility] INSURANCE BILL Occult Blood Urine Negative Negative [facility] INSURANCE BILL Bilirubin UA Negative Negative [facility] INSURANCE BILL Urobilinogen 0.2 0.2 - 1.0 mg/dL [facility] INSURANCE BILL Nitrite UA Negative Negative [facility] INSURANCE BILL Microscopic Examination Urine [facility] INSURANCE BILL Comment:Microscopic not yogi cated and not performed. Urine URINE SPECIMEN OBTAINED BY CLEAN CATCH PROCEDURE / Unknown 08/03/2022 3:11 PM CDT 08/03/2022 Narrative Resulting Agency Comment Lab Testing performed at: [facility] [address] [facility] [id number] Zachery Munoz MD LAB - URINALYSIS ORD ERABLES Performing Organization Address City/[facility]/ZIP Co de Phone Number [facility] INSURANCE BILL [address] [place] [address] * CULTURE URINE (08/03/2022 3:11 PM CDT) Urine Culture Routine Final report [facility] INSURANCE BILL Result 1 [facility] INSURANCE BILL Comment: Culture shows less than 10,000 colony forming units of bacteria per milliliter of urine. This colony count is not generally considered to be clinically significant. Urine URINE SPECIMEN OBTAINED BY CLEAN CATCH PROCEDURE / Unknown 08/03/2022 3:11 PM CDT 08/03/2022 Narrative Resulting Agency Comment Lab Testing performed at: [facility] [address] [facility] [id number] Zachery Munoz MD LAB - MICROBIOLOGY O RDERABLES Performing Organization Address [facility] Co de Phone Number [facility] INSURANCE BILL [address] [place] [address] * (ABNORMAL) LIPID PROFILE W LDL/HDL RATIO [...] Resulting Agency Comment [facility]: [facility] [address] [facility] [phone] Zachery Munoz MD LAB - CHEMISTRY URMILA BARR [facility] INSURANCE BILL [address] [place] [address] * CBC WITH DIFFERENTIAL (07/07/2022 1:38 PM CDT) Only the most recent of3 resultswithin the time period is included. WBC 4.2 3.4 - 10.8 x10E3/uL [facility] INSURANCE BILL RBC 4.41 3.77 - 5.28 x10E6/uL [facility] INSURANCE BILL Hemoglobin 13.6 11.1 - 15.9 g/dL [facility] INSURANCE BILL Hematocrit 42.2 34.0 - 46.6 % [facility] INSURANCE BILL MCV 96 79 - 97 fL [facility] INSURANCE BILL MCH 30.8 26.6 - 33.0 pg [facility] INSURANCE BILL MCHC 32.2 31.5 - 35.7 g/dL [facility] INSURANCE BILL RDW 12.5 11.7 - 15.4 % [facility] INSURANCE BILL Platelet Count 198 150 - 450 x10E3/uL [facility] INSURANCE BILL Granulocytes % 63 Not Estab. % [facility] INSURANCE BILL Lymphocytes % 30 Not Estab. % [facility] INSURANCE BILL Monocytes % 6 Not Estab. % [facility] INSURANCE BILL Eosinophils % 1 Not Estab. % [facility] INSURANCE BILL Basophils % 0 Not Estab. % [facility] INSURANCE BILL Immature Cells NOT AVAILABLE [facility] INSURANCE BILL Comment:Result cannot be obt ained for this observation. Granulocytes Absolute 2.7 1.4 - 7.0 x10E3/uL [facility] INSURANCE BILL Lymphocytes Absolute 1.3 0.7 - 3.1 x10E3/uL [facility] INSURANCE BILL Monocytes Absolute 0.2 0.1 - 0.9 x10E3/uL [facility] INSURANCE BILL Eosinophils Absolute 0.1 0.0 - 0.4 x10E3/uL [facility] INSURANCE BILL Basophils Absolute 0.0 0.0 - 0.2 x10E3/uL [facility] INSURANCE BILL Immature Granulocytes 0 Not Estab. % [facility] INSURANCE BILL Immature Granulocytes Absolute 0.0 0.0 - 0.1 x10E3/uL [facility] INSURANCE BILL nRBC NOT AVAILABLE [facility] INSURANCE BILL Comment:Result cannot be obt ained for this observation. Comment Hematology NOT AVAILABLE [facility] INSURANCE BILL Comment:Result cannot be obt ained for this observation. Blood BLOOD SPECIMEN / Unknown 07/07/2022 1:38 PM CDT 07/07/2022 Narrative Resulting Agency Comment Lab Testing performed at: [facility] [address] [phone] Zachery Munoz MD LAB - HEMATOLOGY ORD ERABLES [facility] INSURANCE BILL [address] [place] [address] * (ABNORMAL) CULTURE URINE COMPREHENSIVE (07/07/2022 1:33 PM CDT) [facility] Urine Culture Comprehensive Final report(A) [facility] INSURANCE BILL Result 1 Enterococcus faecalis(A) [facility] INSURANCE BILL Comment: 25,000-50,000 colony forming units per mL For Enterococcus species, aminoglycosides (except for high-level resistance screening), cephalosporins, clindamycin, and trimethoprim-sulfamethoxazole are not effective clinically. (CLSI, V664-U05, 2016) Note: this isolate is vancomycin-susceptible. This information is provided for epidemiologic purposes only: vancomycin is not among the antibiotics recommended for therapy of urinary tract infections caused by Enterococcus. Antimicrobial Susceptibility [facility] INSURANCE BILL Comment: S = Susceptible; I = Intermediate; R = Resistant P = Positive; N = Negative MICS are expressed in micrograms per mL Antibiotic RSLT#1 RSLT#2 RSLT#3 RSLT#4 Ciprofloxacin S Levofloxacin S Nitrofurantoin S Penicillin S Tetracycline R Vancomycin S Microbiology URINE / Unknown 07/07/2022 1 :33 PM CDT 07/07/2022 Narrative Resulting Agency Comment Lab Testing performed at: [facility] [address] [id number] Zachery Munoz MD LAB - MICROBIOLOGY O RDERABLES [facility] INSURANCE BILL [address] [place] [address] * PAP IG LB (07/07/2022 1:17 PM CDT) Diagnosis [facility] INSURANCE BILL Comment: NEGATIVE FOR INTRAEPITHELIAL LESION OR MALIGNANCY. REACTIVE CELLULAR CHANGES AND/OR REPAIR ARE PRESENT. Specimen Adequacy [facility] INSURANCE BILL Comment:Satisfactory for manolo luation. No endocervical component is identified. Clinician Provided ICD10 [facility] INSURANCE BILL Comment: Z01.419 Z00.00 Z13.9 R31.9 Performed by [facility] INSURANCE BILL Comment:Lisa Leach Meat Trimmer (ASCP) Electronically Signed by [facility] INSURANCE BILL Comment:Wan Levi MD, Pa thologist Comment . [facility] INSURANCE BILL Note [facility] INSURANCE BILL Comment: The Pap smear is a screening test designed to aid in the detection of premalignant and malignant conditions of the uterine cervix. It is not a diagnostic procedure and should not be used as the sole means of detecting cervical cancer. Both false-positive and false-negative reports do occur. . IGLBP CPT Code Automation [facility] INSURANCE BILL Comment: This liquid based ThinPrep(R) pap test was screened with the use of an image guided system. Pathology/Cytolog y PART OF UTERINE CERVIX / Unknown 07/07/2022 1:17 PM CDT 07/07/2022 Narrative [facility] INSURANCE BILL - 07/13/2022 1:09 PM CDT Source.............Cervix;Endocervix No. of containers..01 ThinPrep Vial Resulting Agency Comment Lab Testing performed at: [address] [id number] Zachery Munoz MD LAB - PATHOLOGY/CYTO LOGY ORDERABLES [facility] INSURANCE BILL [address] [place] [address] * COLONOSCOPY (02/09/2021) 02/09/2021 Narrative 02/09/2021 Ordered by an unspecified provider. Scanned Document SCANNING ONLY * PAP IG LB RFLX HPV APTIMA ASCU (02/03/2021 2:38 PM COPY LATHE OPERATOR) Only the most recent of2 resultswithin the time period is included. Diagnosis [facility] ACCOUNT BILL Comment:NEGATIVE FOR INTRAEP ITHELIAL LESION OR MALIGNANCY. Specimen Adequacy [facility] ACCOUNT BILL Comment: Satisfactory for evaluation. Endocervical and/or squamous metaplastic cells (endocervical component) are present. Clinician Provided ICD10 [facility] ACCOUNT BILL Comment:Z01.419 Performed by [facility] ACCOUNT BILL Comment:Margarita Dugan , Meat Trimmer (ASC) Comment . [facility] ACCOUNT BILL Note [facility] ACCOUNT BILL Comment: The Pap smear is a screening test designed to aid in the detection of premalignant and malignant conditions of the uterine cervix. It is not a diagnostic procedure and should not be used as the sole means of detecting cervical cancer. Both false-positive and false-negative reports do occur. . IGLBP CPT Code Automation [facility] ACCOUNT BILL Comment: This liquid based ThinPrep(R) pap test was screened with the use of an image guided system. Note [facility] ACCOUNT BILL Comment: The HPV DNA reflex criteria were not met with this specimen result therefore, no HPV testing was performed. . Pathology/Cytolog y PART OF UTERINE CERVIX / Unknown 02/03/2021 2:38 PM COPY LATHE OPERATOR 02/04/2021 Narrative [facility] ACCOUNT BILL - 02/06/2021 1:08 PM COPY LATHE OPERATOR Source.............Cervix;Endocervix Other..............Post Menopausal No. of containers..01 ThinPrep Vial Resulting Agency Comment Lab Testing performed at: [facility] [id number] Antoine Estevez MD LAB - PATHOLOGY/CYTO LOGY ORDERABLES [facility] ACCOUNT BILL [address] [place] [address] * MAMMO BILAT SCREENING (06/19/2020 2:49 PM CDT) Only the most recent of7 resultswithin the time period is included. Anatomical Region Laterality Modality Breast Bilateral Mammography [...] either breast. Antoine Estevez MD MAMMO ORDERABLES * CARDIAC RHYTHM STRIP ORDER (01/18/2019 4:18 PM CDT) Only the most recent of2 resultswithin the time period is included. Narrative 01/18/2019 4:18 PM CDT Ordered by an unspecified provider. Scanned Document CARDIAC SERVICES ORD ERABLES * GROSS + MICRO EXAM (STL) (01/17/2019 12:50 PM CDT) Only the most recent of3 resultswithin the time period is included. Case Report Surgical Pathology Report Case: [id number] Authorizing Provider: Antoine Estevez MD Collected: 01/17/2019 12:50 PM Ordering Location: [facility] Received: 01/17/2019 02:13 PM Pathologist: Shelbi Eng MD Specimen: Polyp Endometrial 01/18/2019 12:30 PM CDT [facility] Final Diagnosis Polyp, endometrium, polypectomy: - Consistent with benign endometrial polyp. SD/scs 01/18/2019 12:30 PM CDT [facility] Clinical History Endometrial polyp. 01/18/2019 12:30 PM [facility] Gross Description The specimen is labeled with the patient s name, Aixa Bray, and labeled, polyp endometrium. The specimen contained in a surgical gauze and sock-like apparatus, multiple fragments of yellow-swenson tissue, in an aggregate measuring 2 x 1 x 0.3 cm in greatest dimension. The material is submitted entirely as A1. gm/na 01/18/2019 12:30 PM [facility] Microscopic Description The H&E sections show multiple fragments of endometrial tissue with variably dilated glands, focally hyalinized stroma, and increased numbers of thick-walled vasculature, consistent with endometrial polyp. There is no evidence of hyperplasia, atypia, or malignancy. SD/scs 01/18/2019 12:30 PM [facility] Disclaimer All histochemical and/or immunohistochemical results are interpreted with controls that demonstrate appropriate staining reactions before reporting results. Note on use of immunocytochemistry reagents: This test was developed and its performance characteristic determined by [facility], Department of Laboratory Medicine. It has not been cleared or approved by the U.S. Food and Drug Administration (FDA). The FDA has determined that such clearance or approval is not necessary. The test is used for clinical purpose. It should not be regarded as investigational or for research. This laboratory is certified to perform high complexity testing. 01/18/2019 12:30 PM T [facility] Embedded Images 01/18/2019 12:30 PM [facility] Pathology/Cytolo gy ENDOMETRIAL POLYP SPECIMEN / Unknown 01/17/2019 12:50 PM CDT 01/17/2019 2:13 PM CDT Comment:Pre-op diagnosis: N95.0 PMB Antoine Estevez MD LAB - PATHOLOGY/CYTO LOGY ORDERABLES [facility] [address] [id number] * US TRANSVAGINAL NON OB (11/23/2018 11:09 AM CDT) Only the most recent of2 resultswithin the time period is included. Anatomical Region Laterality Modality Abdomen Ultrasound Narrative 11/23/2018 11:09 AM CDT Cedric Ford RDMS 11/23/2018 2:21 PM [facility] [employer] [employer] RECLAIM[facility] PELVIC ULTRASOUND Pt. Name: Aixa Bray : 1955 Exam Date: 11/23/2018 LMP: No LMP recorded. (Menstrual status: Menopause). Reason for Scan: pmb Transabdominal: No Transvaginal: Yes Uterine orientation: Anteverted Endometrial thickness: 7.4 mm. Right Ovary: normal Left Ovary: normal Fluid in Cul de Sac: The cul-de-sac is free and contains no fluid Comments: EMC is 7.4mm, on the left side of the endometrium is a 6.9mm echogenic area, likely represents a polyp. Can Capper: Cedric Ford RDMS, RT(R) Images will be scanned into the record. Interpreting Physician: Antoine Estevez M.D. Procedure Note Cedric Ford RDMS - 11/23/2018 11:09 AM CDT [facility] [employer] PELVIC ULTRASOUND Pt. Name: Aixa Bray : 1955 Exam Date: 11/23/2018 LMP: No LMP recorded. (Menstrual status: Menopause). Reason for Scan: pmb Transabdominal: No Transvaginal: Yes Uterine orientation: Anteverted Endometrial thickness: 7.4 mm. Right Ovary: normal Left Ovary: normal Fluid in Cul de Sac: The cul-de-sac is free and contains no fluid Comments: EMC is 7.4mm, on the left side of the endometrium is a 6.9mmechogenic area, likely represents a polyp. Can Capper: Cedric Ford RDMS, RT(R) Images will be scanned into the record. Interpreting Physician: Antoine Estevez M.D. Antoine Estevez MD US ORDERABLES * PAP IG RFLX HPV ASCU (08/04/2018 11:12 AM CDT) Only the most recent of9 resultswithin the time period is included. Diagnosis [facility] INSURANCE BILL Comment: NEGATIVE FOR INTRAEPITHELIAL LESION OR MALIGNANCY. FUNGAL ORGANISMS MORPHOLOGICALLY CONSISTENT WITH RANDY SPECIES ARE PRESENT. Specimen Adequacy [facility] INSURANCE BILL Comment:Satisfactory for manolo luation. No endocervical component is identified. Clinician Provided ICD10 [facility] INSURANCE BILL Comment: Z01.419 Z12.31 Performed by [facility] INSURANCE BILL Comment:Omayra Romeo Cytot echnologist (ASCP) Comment . [facility] INSURANCE BILL Note [facility] INSURANCE BILL Comment: The Pap smear is a screening test designed to aid in the detection of premalignant and malignant conditions of the uterine cervix. It is not a diagnostic procedure and should not be used as the sole means of detecting cervical cancer. Both false-positive and false-negative reports do occur. . IGLBP CPT Code Automation [facility] INSURANCE BILL Comment: This liquid based ThinPrep(R) pap test was screened with the use of an image guided system. Note [facility] INSURANCE BILL Comment: The HPV DNA reflex criteria were not met with this specimen result therefore, no HPV testing was performed. . Pathology/Cytolog y PART OF UTERINE CERVIX / Unknown 08/04/2018 11:12 AM CDT 08/04/2018 Narrative [facility] INSURANCE BILL - 08/08/2018 11:11 AM CDT No. of containers..01 ThinPrep Vial Resulting Agency Comment Lab Testing performed at: [address] [id number] Antoine Estevez MD LAB - PATHOLOGY/CYTO LOGY ORDERABLES [facility] INSURANCE BILL [address] [place] [address] * ENDOSCOPY, COLON, SCREENING (01/17/2015) Antoine Estevez MD GI PROCEDURE ORDERAB LES * PATHOLOGY/CYTOLOGY REPORT ORDER (08/15/2014) Antoine Estevez MD LAB - PATHOLOGY/CYTO LOGY ORDERABLES * US BREAST BILATERAL COMPLETE (07/26/2014 2:19 PM CDT) Anatomical Region Laterality Modality Breast Bilateral Ultrasound 07/26/2014 5:27 PM CDT Impressions 07/26/2014 5:30 PM CDT 1. No evidence of malignancy in left breast. Finding seen on screening mammogram reflected superimposition of normal breast tissue. 2. Probably benign mass in the subareolar right breast noted on ultrasound performed in context of breast density. Short interval followup is recommended for stability. ASSESSMENT: BIRADS Category 3: Probably benign finding. Short interval follow-up suggested. RECOMMENDATION: Targeted right breast ultrasound in six months. Findings and recommendation were discussed with the patient by Dr. Kennedy. Thank you for allowing us to participate in the care of your patient. [facility] [place] utilizes [email or web address] as a reminder system to notify patients of their next recommended mammogram. Narrative 07/26/2014 5:30 PM CDT EXAMINATION: Digital left diagnostic mammogram and bilateral whole breast ultrasound on 07/26/2014. Computer assisted detection was utilized. PRIOR: Multiple prior screening mammograms, most recently 07/18/2014. HISTORY: 59-year-old female called back from screening for evaluation of an asymmetry in the left breast. FINDINGS: Breast parenchymal density: The breasts are heterogeneously dense, which may obscure small masses. Additional views of the left breast, including spot compression views, do not demonstrate persistent abnormality in the area of questioned finding on the screening mammogram. There is no mass, architectural distortion, or suspicious microcalcification. After discussion with the patient, given breast density, whole breast ultrasound was performed bilaterally. There is an oval hypoechoic mass with circumscribed margins in the subareolar right breast, which is not definitely intraductal. The mass measures 1.9 x 0.6 x 1.0 cm. No other suspicious mass is present in the right breast. No suspicious mass is present in the left breast. Mild ductal ectasia is present bilaterally. Procedure Note Elizabeth Kennedy MD - 07/26/2014 EXAMINATION: Digital left diagnostic mammogram and bilateral whole breast ultrasound on 07/26/2014. Computer assisted detection was utilized. PRIOR: Multiple prior screening mammograms, most recently 07/18/2014. HISTORY: 59-year-old female called back from screening for evaluation of an asymmetry in the left breast. FINDINGS: Breast parenchymal density: The breasts are heterogeneously dense, which may obscure small masses. Additional views of the left breast, including spot compression views, do not demonstrate persistent abnormality in the area of questioned finding on the screening mammogram. There is no mass, architectural distortion, or suspicious microcalcification. After discussion with the patient, given breast density, whole breast ultrasound was performed bilaterally. There is an oval hypoechoic mass with circumscribed margins in the subareolar right breast, which is not definitely intraductal. The mass measures 1.9 x 0.6 x 1.0 cm. No other suspicious mass is present in the right breast. No suspicious mass is present in the left breast. Mild ductal ectasia is present bilaterally. IMPRESSION 1. No evidence of malignancy in left breast. Finding seen on screening mammogram reflected superimposition of normal breast tissue. 2. Probably benign mass in the subareolar right breast noted on ultrasound performed in context of breast density. Short interval followup is recommended for stability. ASSESSMENT: BIRADS Category 3: Probably benign finding. Short interval follow-up suggested. RECOMMENDATION: Targeted right breast ultrasound in six months. Findings and recommendation were discussed with the patient by Dr. Kennedy. Thank you for allowing us to participate in the care of your patient. [facility] Breast [facility] utilizes [email or web address] as a reminder system to notify patients of their next recommended mammogram. Antoine Estevez MD US ORDERABLES * (ABNORMAL) ROSHAN DIAG DIRECT DIG IMAGE UNI LEFT [id number] (07/26/2014 2:02 PM CDT) Anatomical Region Laterality Modality Left Mammography 07/26/2014 5:27 PM CDT Impressions 07/26/2014 5:30 PM CDT 1. No evidence of malignancy in left breast. Finding seen on screening mammogram reflected superimposition of normal breast tissue. 2. Probably benign mass in the subareolar right breast noted on ultrasound performed in context of breast density. Short interval followup is recommended for stability. ASSESSMENT: BIRADS Category 3: Probably benign finding. Short interval follow-up suggested. RECOMMENDATION: Targeted right breast ultrasound in six months. Findings and recommendation were discussed with the patient by Dr. Kennedy. Thank you for allowing us to participate in the care of your patient. [facility] Breast [facility] utilizes [email or web address] as a reminder system to notify patients of their next recommended mammogram. Narrative 07/26/2014 5:30 PM CDT EXAMINATION: Digital left diagnostic mammogram and bilateral whole breast ultrasound on 07/26/2014. Computer assisted detection was utilized. PRIOR: Multiple prior screening mammograms, most recently 07/18/2014. HISTORY: 59-year-old female called back from screening for evaluation of an asymmetry in the left breast. FINDINGS: Breast parenchymal density: The breasts are heterogeneously dense, which may obscure small masses. Additional views of the left breast, including spot compression views, do not demonstrate persistent abnormality in the area of questioned finding on the screening mammogram. There is no mass, architectural distortion, or suspicious microcalcification. After discussion with the patient, given breast density, whole breast ultrasound was performed bilaterally. There is an oval hypoechoic mass with circumscribed margins in the subareolar right breast, which is not definitely intraductal. The mass measures 1.9 x 0.6 x 1.0 cm. No other suspicious mass is present in the right breast. No suspicious mass is present in the left breast. Mild ductal ectasia is present bilaterally. Antoine Estevez MD MAMMO ORDERABLES * FSH (07/18/2014 11:49 AM CDT) FSH 161.6 mIU/mL [facility] ACCOUNT BILL Comment: Follicular phase 3.5 - 12.5 Ovulation phase 4.7 - 21.5 Luteal phase 1.7 - 7.7 Postmenopausal 25.8 - 134.8 Blood specimen (specimen) BLOOD SPECIMEN / Unknown 07/18/2014 11:49 AM CDT 07/18/2014 4:51 PM CDT Narrative Resulting Agency Comment [facility] [place] [id number] [facility] [phone] Antoine Estevez MD LAB - CHEMISTRY URMILA BARR [facility] ACCOUNT BILL * TSH (07/18/2014 11:49 AM CDT) Only the most recent of2 resultswithin the time period is included. TSH 1.830 0.450 - 4.500 uIU/mL [facility] ACCOUNT BILL Blood specimen (specimen) BLOOD SPECIMEN / Unknown 07/18/2014 11:49 AM CDT 07/18/2014 4:51 PM CDT Narrative Resulting Agency Comment [facility] [place] [address] [facility] [phone] Antoine Estevez MD LAB - CHEMISTRY URMILA BARR Performing Organization Address [facility] de Phone Number [facility] ACCOUNT BILL * (ABNORMAL) CHOLESTEROL BLOOD (10/06/2012 11:10 AM CDT) Cholesterol 213(H) 100 - 199 mg/dL [facility] ACCOUNT BILL Blood specimen (specimen) BLOOD SPECIMEN / Unknown 10/06/2012 11:10 AM CDT 10/06/2012 5:32 PM CDT Narrative Resulting Agency Comment [facility] [place] [address] [facility] [phone] Antoine Estevez MD LAB - CHEMISTRY URMILA BARR Performing Organization Address [facility] de Phone Number [facility] ACCOUNT BILL * T4 FREE (10/06/2012 11:10 AM CDT) T4 Free 1.21 0.82 - 1.77 ng/dL [facility] ACCOUNT BILL Blood specimen (specimen) BLOOD SPECIMEN / Unknown 10/06/2012 11:10 AM CDT 10/06/2012 5:32 PM CDT Narrative Resulting Agency Comment [facility] [address] [facility] [phone] Antoine Estevez MD LAB - CHEMISTRY URMILA BARR Performing Organization Address [facility] de Phone Number [facility] ACCOUNT BILL * ENDOSCOPY, COLON, SCREENING (03/27/2012 9:33 AM COPY LATHE OPERATOR) Narrative [facility] ENDOSCOPY - 03/27/2012 9:33 AM COPY LATHE OPERATOR Procedure Note Ray Clark MD - 03/27/2012 9:33 AM CST Ray Clark MD GI PROCEDURE ORDERAB LES Performing Organization Address [facility] Co de Phone Number [facility] ENDOSCOPY * HCG URINE QUALITATIVE - POINT OF CARE (IP) (03/27/2012 8:39 AM COPY LATHE OPERATOR) HCG Qual Urine negative Negative [facility] POCT TESTING QC Verified yes Yes [facility] POC T TESTING Urine specimen (specimen) URINE / Unknown 03/27/2012 8:39 AM COPY LATHE OPERATOR Ray Clark MD LAB - POINT OF CARE ORDERABLES [place] [address] * IMAGING/RADIOLOGY/XRAY RESULTS ORDER (07/06/2011 7:37 AM CDT) Anatomical Region Laterality Modality Other Narrative Transcriptions Document, Scanned - 07/06/2011 7:37 AM CDT Scanned Document IMAGING * ENDOSCOPY ORDER (02/05/2009 12:00 AM COPY LATHE OPERATOR) 02/05/2009 Narrative Procedure Note Ray Clark MD - 02/05/2009 12:00 AM [facility] [address] [place] [id number] Endoscopy Note PATIENT NAME: AIXA BRAY MR#: [id number] ADMIT DATE: 02/05/2009 DATE OF SERVICE: 02/05/2009 : 1955 PREOPERATIVE DIAGNOSIS: 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 POSTOPERATIVE DIAGNOSIS: Normal colonoscopy, no new polyps. 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 The procedure was discussed with the patient, including the possiblerisks, such as the possibilities of bleeding or perforation and the possibleneed for surgery to correct any complications; the possibility of cardiopulmonary complications and the fact that a lesion could bemissed. PROCEDURE: With the patient in the left lateral decubitus position, under monitored anesthesia care, a rectal exam was performed, revealing normal sphincter tone. An Olympus colonoscope was inserted with ease into the rectum and advanced to the cecum. No polyps or other pathology were seen. The colonoscope was very slowly and gradually withdrawn. She tolerated the procedure well. RECOMMENDATIONS: Repeat colonoscopy in three years. RJG - [id number] Ray Clark M.D. cc: Ray Clark MD GI PROCEDURE ORDERAB LES * GROSS + MICRO EXAM (08/10/2006 2:33 PM CDT) Result CASE NUMBER [id number] Comment: ORDERING PHYSICIAN RAY CLARK SPECIMEN TYPE Colon Biopsy-SIGMOID Date 08/10/2006 Physician Lily Clark Gross Description The specimen is labeled with the patient's name, Aixa Bray, and sigmoid polyp. It consists of multiple 1-2 mm fragments of swenson red tissue, all submitted in a single cassette. LW morejon Microscopic Exam Sections show fragments of colonic mucosa with features of tubular adenoma. High-grade dysplasia or malignancy is not seen. MC/na Diagnosis I. Sigmoid colon, polyp, biopsy -- Tubular adenoma MC/na Demolition Hammer Operator na Pathologist Trae Stapleton M.D. [place]. 08/11/2006 0946 <1> CPT code 62680 MISCELLANEOUS SAMPLES / Unknown 08/10/2006 2:33 PM CDT 08/10/2006 2:33 PM CDT Historical Provider LAB - PATHOLOGY/C YTOLOGY ORDERABLES Care Teams Surgeon/President Relationship Specialty Start Date End Date Antoine Estevez MD [address] [place] [address] [place] [id number] PCP - OBGYN Obstetrics and Gynecology 10/06/12
[2024-05-13 22:28] VITALS: BP 143/80; PULSE 117; RESP 20; TEMP 36.6; O2SAT 100
--- NOTE | 2024-05-14 00:11 | PC.NURSE ---
Pt/pt's came to triage desk stating she would like to leave because of the wait . Pt requested to have VS retaken. VSS at that time. PT AOx4. PT ambulatory.
--- OUTSIDE RECORDS SUMMARY | 2024-05-14 00:26 | XMS_ITS | Patient Health Summary ---
Author Organization [facility] Address [address] [place] [address] Care Team Providers Care Boathouse Keeper Name Role Phone Antoine Estevez MD Unavailable [phone] Note from [facility],non-owned Affiliates and Associated Physician Practices is amultiple site organization consisting of ambulatory clinics and hospital sitesin [place], [place], [place]. This disclosure is being madepursuant to the Care Everywhere program and may not contain all information available regarding this patient. Last updated 17.[facility] Allergies * Cephalexin(Urticaria,Nausea and/or Vomiting) [...] Comments Blood Pressure 118/80 05/11/2024 1:34 PM CROP OR GRAIN FARMER Pulse 72 01/17/2019 1:35 PM CDT Temperature 36.6 C (97.8 F) 01/17/2019 1:35 PM CDT Respiratory Rate 16 01/17/2019 1:35 PM CDT Oxygen Saturation 99% 01/17/2019 1:55 PM CDT Inhaled Oxygen Concentration - - Weight 63.8 kg (140 lb 11.2 oz) 05/11/2024 1:34 PM CROP OR GRAIN FARMER Height 165.1 cm (5' 5 ) 05/11/2024 1:34 PM CROP OR GRAIN FARMER Body Mass Index 23.41 05/11/2024 1:34 PM CROP OR GRAIN FARMER Procedures * URINALYSIS REFLEX TO MICROSCOPIC NO [...] (STL)(Performed 01/17/2019) Performed for Diagnosis unknown * ND HYSTEROSCOPY,ENDOMET ABLATION(Performed 01/17/2019) Performed for N95.0, PMB [...] resultswithin the time period is included. Specific [place] UA 1.006 1.005 - 1.030 [facility] INSURANCE [...] Resulting Agency Comment Lab Testing performed at: [employer] [address] [id number] Zachery Munoz MD LAB - URINALYSIS ORD ERABLES Performing Organization Address City/[facility]/ZIP Co de Phone Number [facility] INSURANCE BILL [address] [place] [address] * CULTURE URINE (08/03/2022 3:11 PM CDT) [...] Resulting Agency Comment Lab Testing performed at: [employer] [address] [id number] Zachery Munoz MD LAB - MICROBIOLOGY O RDERABLES Performing Organization Address [facility] Co de Phone Number [facility] INSURANCE BILL [address] [place] [address] * (ABNORMAL) LIPID PROFILE W LDL/HDL RATIO [...] Resulting Agency Comment Lab Testing performed at: [facility] [address] [id number] Zachery Munoz MD LAB - CHEMISTRY URMILA BARR [facility] INSURANCE BILL [address] [place] [address] * CBC WITH DIFFERENTIAL (07/07/2022 1:38 PM [...] Resulting Agency Comment Lab Testing performed at: [employer] [address] [id number] Zachery Munoz MD LAB - HEMATOLOGY ORD ERABLES [facility] INSURANCE BILL [address] [place] [address] * (ABNORMAL) CULTURE URINE COMPREHENSIVE (07/07/2022 1:33 PM CDT) [facility] Urine Culture Comprehensive Final report(A) [facility] INSURANCE BILL Result 1 Enterococcus faecalis(A) [facility] INSURANCE BILL Comment: 25,000-50,000 colony forming units per mL For Enterococcus species, aminoglycosides (except for high-level resistance screening), cephalosporins, clindamycin, and trimethoprim-sulfamethoxazole are not effective clinically. (CLSI, S706-N51, 2016) Note: this isolate is vancomycin-susceptible. This [...] Resulting Agency Comment Lab Testing performed at: [employer] [address] [id number] Zachery Munoz MD LAB - MICROBIOLOGY O RDERABLES [facility] INSURANCE BILL [address] [place] [address] * PAP IG LB (07/07/2022 1:17 PM CDT) Diagnosis [facility] INSURANCE BILL Comment: NEGATIVE FOR INTRAEPITHELIAL LESION OR MALIGNANCY. REACTIVE CELLULAR CHANGES AND/OR REPAIR ARE PRESENT. Specimen Adequacy [facility] INSURANCE BILL Comment:Satisfactory for manolo luation. No endocervical component is identified. Clinician Provided ICD10 [facility] INSURANCE BILL Comment: Z01.419 Z00.00 Z13.9 R31.9 Performed by [facility] INSURANCE BILL Comment:Lisa Leach Promotions Director (ASCP) Electronically Signed by [facility] INSURANCE BILL Comment:Wan Levi MD, Pa thologist [...] Resulting Agency Comment Lab Testing performed at: [address] [id number] Zachery Munoz MD LAB - PATHOLOGY/CYTO LOGY ORDERABLES [facility] INSURANCE BILL [address] [place] [address] * COLONOSCOPY (02/09/2021) 02/09/2021 Narrative 02/09/2021 Ordered by an unspecified provider. Scanned Document SCANNING ONLY * PAP IG LB RFLX HPV APTIMA ASCU (02/03/2021 2:38 PM CROP OR GRAIN FARMER) Only the most recent of2 resultswithin the time period is included. Diagnosis [facility] ACCOUNT BILL Comment:NEGATIVE FOR INTRAEP ITHELIAL LESION OR MALIGNANCY. Specimen Adequacy [facility] ACCOUNT BILL Comment: Satisfactory for evaluation. Endocervical and/or squamous metaplastic cells (endocervical component) are present. Clinician Provided ICD10 [facility] ACCOUNT BILL Comment:Z01.419 Performed by [facility] ACCOUNT BILL Comment:Margarita Dugan , Promotions Director (ASC) Comment . [facility] ACCOUNT BILL Note [...] UTERINE CERVIX / Unknown 02/03/2021 2:38 PM CROP OR GRAIN FARMER 02/04/2021 Narrative [facility] ACCOUNT BILL - 02/06/2021 1:08 PM CROP OR GRAIN FARMER Source.............Cervix;Endocervix Other..............Post Menopausal No. of containers..01 ThinPrep Vial Resulting Agency Comment Lab Testing performed at: [facility] [id number] Antoine Estevez MD LAB - PATHOLOGY/CYTO LOGY ORDERABLES [facility] ACCOUNT BILL [address] [place] [address] * MAMMO BILAT SCREENING (06/19/2020 2:49 PM [...] included. Case Report Surgical Pathology Report Case: [id number] Authorizing Provider: Antoine Estevez MD Collected: 01/17/2019 12:50 PM Ordering Location: [facility] Received: 01/17/2019 02:13 PM Pathologist: Shelbi Eng MD Specimen: Polyp Endometrial 01/18/2019 12:30 PM CDT [facility] Final Diagnosis Polyp, endometrium, polypectomy: - Consistent with benign endometrial polyp. SD/scs 01/18/2019 12:30 PM CDT [facility] Clinical History Endometrial polyp. 01/18/2019 12:30 PM [facility] Gross Description The specimen is labeled with the patient s name, Aixa Bray, and labeled, polyp endometrium. The specimen contained in a surgical gauze and sock-like apparatus, multiple fragments of yellow-swenson tissue, in an aggregate measuring 2 x 1 x 0.3 cm in greatest dimension. The material is submitted entirely as A1. gm/na 01/18/2019 12:30 PM [facility] Microscopic Description The H&E sections show multiple fragments of endometrial tissue with variably dilated glands, focally hyalinized stroma, and increased numbers of thick-walled vasculature, consistent with endometrial polyp. There is no evidence of hyperplasia, atypia, or malignancy. SD/scs 01/18/2019 12:30 PM [facility] Disclaimer All histochemical and/or immunohistochemical results are interpreted with controls that demonstrate appropriate staining reactions before reporting results. Note on use of immunocytochemistry reagents: This test was developed and its performance characteristic determined by [facility], Department of Laboratory Medicine. It has not been cleared or approved by the U.S. Food and Drug Administration (FDA). The FDA has determined that such clearance or approval is not necessary. The test is used for clinical purpose. It should not be regarded as investigational or for research. This laboratory is certified to perform high complexity testing. 01/18/2019 12:30 PM T [facility] Embedded Images 01/18/2019 12:30 PM [facility] Pathology/Cytolo gy ENDOMETRIAL POLYP SPECIMEN / Unknown 01/17/2019 12:50 PM CDT 01/17/2019 2:13 PM CDT Comment:Pre-op diagnosis: N95.0 PMB Antoine Estevez MD LAB - PATHOLOGY/CYTO LOGY ORDERABLES [facility] [address] [address] * US TRANSVAGINAL NON OB (11/23/2018 11:09 AM CDT) Only the most recent of2 resultswithin the time period is included. Anatomical Region Laterality Modality Abdomen Ultrasound Narrative 11/23/2018 11:09 AM CDT Cedric Ford RDMS 11/23/2018 2:21 PM [facility] RESEARCH ASSOCIATE PELVIC ULTRASOUND Pt. Name: Aixa Bray : [...] 6.9mm echogenic area, likely represents a polyp. Air Support Operations Operator: Cedric Ford RDMS, RT(R) Images will be scanned into the record. Interpreting Physician: Antoine Estevez M.D. Procedure Note Cedric Ford RDMS - 11/23/2018 11:09 AM CDT [facility] RESEARCH ASSOCIATE PELVIC ULTRASOUND Pt. Name: Aixa Bray : [...] a 6.9mmechogenic area, likely represents a polyp. Air Support Operations Operator: Cedric Ford RDMS, RT(R) Images will be [...] INSURANCE BILL Comment: Z01.419 Z12.31 Performed by [facility] INSURANCE BILL Comment:Omayra Romeo Cytot echnologist (ASCP) Comment . [facility] INSURANCE BILL Note [facility] INSURANCE BILL Comment: The Pap smear is a screening test designed to aid in the detection of premalignant and malignant conditions of the uterine cervix. It is not a diagnostic procedure and should not be used as the sole means of detecting cervical cancer. Both false-positive and false-negative reports do occur. . [facility] CPT Code Automation [facility] INSURANCE BILL Comment: This liquid based ThinPrep(R) pap test was screened with the use of an image guided system. Note [facility] INSURANCE BILL Comment: The HPV DNA reflex criteria were not met with this specimen result therefore, no HPV testing was performed. . Pathology/Cytolog y PART OF UTERINE CERVIX / Unknown 08/04/2018 11:12 AM CDT 08/04/2018 Narrative [facility] INSURANCE BILL - 08/08/2018 11:11 AM CDT No. of containers..01 ThinPrep Vial Resulting Agency Comment Lab Testing performed at: [address] [id number] Antoine Estevez MD LAB - PATHOLOGY/CYTO LOGY ORDERABLES [facility] INSURANCE BILL [address] [place] [address] * ENDOSCOPY, COLON, SCREENING (01/17/2015) Antoine Estevez [...] participate in the care of your patient. [facility] [place] utilizes [employer] as a reminder system to notify patients [...] participate in the care of your patient. [facility] utilizes [employer] as a reminder system to notify patients of their next recommended mammogram. Antoine Estevez MD US ORDERABLES * (ABNORMAL) ROSHAN DIAG DIRECT DIG IMAGE UNI LEFT [id number] (07/26/2014 2:02 PM CDT) Anatomical Region Laterality [...] participate in the care of your patient. [facility] utilizes [employer] as a reminder system to notify patients [...] PM CDT Narrative Resulting Agency Comment [facility] [id number] [facility] [id number] Antoine Estevez MD LAB - CHEMISTRY URMILA BARR [facility] ACCOUNT BILL * TSH (07/18/2014 11:49 AM CDT) Only the most recent of2 resultswithin the time period is included. TSH 1.830 0.450 - 4.500 uIU/mL [facility] ACCOUNT BILL Blood specimen (specimen) BLOOD SPECIMEN / Unknown 07/18/2014 11:49 AM CDT 07/18/2014 4:51 PM CDT Narrative Resulting Agency Comment [facility] [address] [id number] Antoine Estevez MD LAB - CHEMISTRY URMILA BARR Performing Organization Address [facility] de Phone Number [facility] ACCOUNT BILL * (ABNORMAL) CHOLESTEROL BLOOD (10/06/2012 11:10 AM CDT) Cholesterol 213(H) 100 - 199 mg/dL [facility] ACCOUNT BILL Blood specimen (specimen) BLOOD SPECIMEN / Unknown 10/06/2012 11:10 AM CDT 10/06/2012 5:32 PM CDT Narrative Resulting Agency Comment [facility] [address] [id number] Antoine Estevez MD LAB - CHEMISTRY URMILA BARR Performing Organization Address [facility] de Phone Number [facility] ACCOUNT BILL * T4 FREE (10/06/2012 11:10 AM CDT) T4 Free 1.21 0.82 - 1.77 ng/dL [facility] ACCOUNT BILL Blood specimen (specimen) BLOOD SPECIMEN / Unknown 10/06/2012 11:10 AM CDT 10/06/2012 5:32 PM CDT Narrative Resulting Agency Comment [facility] [address] [id number] Antoine Estevez MD LAB - CHEMISTRY URMILA BARR Performing Organization Address [facility] de Phone Number [facility] ACCOUNT BILL * ENDOSCOPY, COLON, SCREENING (03/27/2012 9:33 AM CROP OR GRAIN FARMER) Narrative [facility] ENDOSCOPY - 03/27/2012 9:33 AM CROP OR GRAIN FARMER Procedure Note Ray Clark MD - 03/27/2012 9:33 AM CST Ray Clark MD GI PROCEDURE ORDERAB LES Performing Organization Address [facility] Co de Phone Number [facility] ENDOSCOPY * HCG URINE QUALITATIVE - POINT OF CARE (IP) (03/27/2012 8:39 AM CROP OR GRAIN FARMER) HCG Qual Urine negative Negative [facility] POCT TESTING QC Verified yes Yes [facility] POC T TESTING Urine specimen (specimen) URINE / Unknown 03/27/2012 8:39 AM CROP OR GRAIN FARMER Ray Clark MD LAB - POINT OF CARE ORDERABLES [place] [address] * IMAGING/RADIOLOGY/XRAY RESULTS ORDER (07/06/2011 7:37 AM CDT) Anatomical Region Laterality Modality Other Narrative Transcriptions Document, Scanned - 07/06/2011 7:37 AM CDT Scanned Document IMAGING * ENDOSCOPY ORDER (02/05/2009 12:00 AM CROP OR GRAIN FARMER) 02/05/2009 Narrative Procedure Note Ray Clark MD - 02/05/2009 12:[address] [address] [place] [address] Endoscopy Note PATIENT NAME: AIXA BRAY MR#: [id number] ADMIT DATE: 02/05/2009 DATE OF SERVICE: 02/05/2009 [...] Repeat colonoscopy in three years. RJG - [id number] Ray Clark M.D. cc: Ray Clark MD [...] colon, polyp, biopsy -- Tubular adenoma MC/na Jumpbasting Machine Operator na Pathologist Trae Stapleton M.D. Snomed. 08/11/2006 0946 <1> CPT code 26152 MISCELLANEOUS SAMPLES / Unknown 08/10/2006 2:33 PM CDT 08/10/2006 2:33 PM CDT Historical Provider LAB - PATHOLOGY/C YTOLOGY ORDERABLES Care Teams Boathouse Keeper Relationship Specialty Start Date End Date Antoine Estevez MD [address] [place] [address] [place] [address] PCP - OBGYN Obstetrics and Gynecology 10/06/12
--- OUTSIDE RECORDS SUMMARY | 2024-05-14 00:26 | XMS_ITS | Clinical Summary ---
Author Organization [facility] Address [address] [place] [address] Phone Care Team Providers Care Video Effects Editor Name Role Phone Lois Vallejo MD Primary Care Provider [phone] Allergies Active Allergy Reactions Criticality Noted Date Comments Cephalexin Nausea and Vomiting Low 12/30/2010 Erythromycin Nausea and Vomiting Low 08/07/2014 Medications mometasone (NASONEX) 50 mcg/actuation Argenta, Non-Aerosol Administer 2 Sprays in each nostril [...] Vallejo MD Referring Provider: Antoine Estevez MD [facility] [address] [place] [address] Other: Problem Noted Date Diagnosed Date Fibrosis, [...] on file Legal Sex Female 6:04 AM EQUIPMENT MAINTENANCE TECH Gender Identity Not on file Sexual Orientation [...] ultrasound guided needle localization. [facility] Narrative 08/16/2014 1:37 PM CDT RIGHT BREAST [...] Most Recently Relevant to Health Maintenance Insurance [employer] [facility] Advance Directives For more information, please contact: [phone] * Full Code (Latest Code Status on File) Date Activated Date Inactivated Comments 08/15/2014 8:36 AM 08/15/2014 2:04 PM * Full Code Date Activated Date Inactivated Comments 08/15/2014 7:29 AM 08/15/2014 8:36 AM Care Teams Video Effects Editor Relationship Specialty Start Date End Date Lois Vallejo MD PCP - General Allergy & Immunology 12/16/10
--- OUTSIDE RECORDS SUMMARY | 2024-05-14 00:26 | XMS_ITS | Referral Summary ---
Author Organization [facility] Address [address] [place] [address] Care Team Providers Care Eye Glass Frame Polisher Name Role Phone Antoine Estevez MD Unavailable [phone] Source Comments [facility],non-owned Affiliates and Associated Physician Practices is amultiple site organization consisting of ambulatory clinics and hospital sitesin [place], [place], [place] and [place]. This disclosure is being madepursuant to the Care Everywhere program and may not contain all information available regarding this patient. Last updated 17.[facility] Encounters Date Type Department Care Team Description 05/11/2024 Travel 05/11/2024 1:30 PM PRINTING PRESS MACHINE OPERATOR Office Visit [facility] - CD STORAGE AND MATERIALS MAKE UP HELPER [address] [place] [address], [address] [address] Zachery Munoz MD Vaginal discomfort (Primary Dx); Rectocele 05/09/2024 Telephone [facility] - CD STORAGE AND MATERIALS MAKE UP HELPER [address] [place] [address], [address] [place] [phone] Zachery Munoz MD Vulva Problem from [...] Comments Blood Pressure 118/80 05/11/2024 1:34 PM PRINTING PRESS MACHINE OPERATOR Pulse 72 01/17/2019 1:35 PM CDT Temperature 36.6 C (97.8 F) 01/17/2019 1:35 PM CDT Respiratory Rate 16 01/17/2019 1:35 PM CDT Oxygen Saturation 99% 01/17/2019 1:55 PM CDT Inhaled Oxygen Concentration - - Weight 63.8 kg (140 lb 11.2 oz) 05/11/2024 1:34 PM PRINTING PRESS MACHINE OPERATOR Height 165.1 cm (5' 5 ) 05/11/2024 1:34 PM PRINTING PRESS MACHINE OPERATOR Body Mass Index 23.41 05/11/2024 1:34 PM PRINTING PRESS MACHINE OPERATOR Functional Status Functional Status Response Date of [...] Resulting Agency Comment [facility] [address] [id number] Zachery Munoz MD LAB - CHEMISTRY URMILA BARR [facility] INSURANCE BILL [address] [place] [address] * COLONOSCOPY (02/09/2021) 02/09/2021 Narrative 02/09/2021 Ordered [...] Recently Relevant to Health Maintenance Care Teams Eye Glass Frame Polisher Relationship Specialty Start Date End Date Antoine Estevez MD [address] [place] [address] PCP - OBGYN Obstetrics and Gynecology 10/06/12
--- OUTSIDE RECORDS SUMMARY | 2024-05-14 00:26 | XMS_ITS | Clinical Summary ---
Author Organization [facility] Address [address] [place] [address] Care Team Providers Care Business Banking Manager Name Role Phone Antoine Estevez MD Unavailable [phone] Source Comments [facility],non-owned Affiliates and Associated Physician Practices is amultiple site organization consisting of ambulatory clinics and hospital sitesin [place], [place], [place] and [place]. This disclosure is being madepursuant to the Care Everywhere program and may not contain all information available regarding this patient. Last updated 17.[facility] Allergies Active Allergy Reactions Criticality Noted Date [...] Department Care Team Description 05/11/2024 1:30 PM BUSH REGENERATOR Office Visit [facility] - SETTLEMENT PROCESSOR [address] [place] [address], [address] [place] [phone] Zachery Munoz MD Vaginal discomfort (Primary Dx); Rectocele 05/11/2024 Travel 05/09/2024 Telephone [facility] SETTLEMENT PROCESSOR [address] [place] [address], [address] [place] [phone] Zachery Munoz MD Vulva Problem from [...] Comments Blood Pressure 118/80 05/11/2024 1:34 PM BUSH REGENERATOR Pulse 72 01/17/2019 1:35 PM CDT Temperature 36.6 C (97.8 F) 01/17/2019 1:35 PM CDT Respiratory Rate 16 01/17/2019 1:35 PM CDT Oxygen Saturation 99% 01/17/2019 1:55 PM CDT Inhaled Oxygen Concentration - - Weight 63.8 kg (140 lb 11.2 oz) 05/11/2024 1:34 PM BUSH REGENERATOR Height 165.1 cm (5' 5 ) 05/11/2024 1:34 PM BUSH REGENERATOR Body Mass Index 23.41 05/11/2024 1:34 PM BUSH REGENERATOR Plan of Treatment Health Maintenance Due Date [...] Resulting Agency Comment Lab Testing performed at: [facility] [place] [address] [facility] [id number] Zachery Munoz MD LAB - CHEMISTRY URMILA [facility] Organization Address City/State/ZIP Co de Phone Number [facility] INSURANCE BILL [address] [place] [address] * COLONOSCOPY (02/09/2021) 02/09/2021 Narrative 02/09/2021 Ordered [...] Recently Relevant to Health Maintenance Care Teams Business Banking Manager Relationship Specialty Start Date End Date Antoine Estevez MD [address] [place] [address] PCP - OBGYN Obstetrics and Gynecology 10/06/12
== END 2024-05-14 00:32 | disposition left against medical advice (07) ==
LOC: ANHED 05-14 00:23
PROVIDERS: PCP Family Medicine
DX: R42 Dizziness and giddiness (principal)
CPT/HCPCS: 99199